=== PATIENT | male | born 1960 | race Caucasian/White ===

== ENCOUNTER 2016-06-17 08:59 | Emergency (ER) | payer BC ==
[~2016-06-17] VITALS: Ht 177.8 cm; Wt 85.0 kg
[2016-06-17 09:01] VITALS: BP 123/66; PULSE 90; RESP 20; TEMP 97.5; O2SAT 95
--- NOTE | 2016-06-17 09:09 | PD ---
HPI . left ankle/foot pain since Mon Chief Complaint: Musculoskeletal Complaint Time Seen by Provider: 09:09 Travel History International Travel<30 days: No Contact w/Intl Traveler<30days: No Traveled to known affect area: No History of Present Illness HPI 56-year-old male with no significant past medical history here with complaints of left ankle and foot pain since Monday. Patient was out blowing his deck when he somehow stumbled and fell twisting his left ankle. He also came down with his left hand on the deck and sustained some splinters, which his has removed most of them. He thinks there may still be a few small splinters in his left hand. He is up-to-date on his tetanus shot. In regards to his left ankle and foot pain he rates it as 7/10 without any further radiation. He has mobility in his ankle and digits, but it does cause some pain with movement. He denies any numbness or tingling. He denies any head injury. He has no other complaints. He is accompanied by his . [facility] Past Medical History Medical History: Denies Significant Hx Social History Alcohol Use: No Tobacco Use: No Substance Use: No Allergies-Medications (Allergen,Severity, Reaction): Coded Allergies: No Known Allergies (Unverified , 06/17/16) Reported Meds & Prescriptions Reported Meds & Active Scripts Active Reported Valtrex (Valacyclovir HCl) 1 Gm Tab Unknown Dose PO DAILY Detrol (Tolterodine Tartrate) 1 Mg Tab 1 Mg PO DAILY Review of Systems General / Constitutional: No: Fever Eyes: No: Visual changes HENT: No: Headaches Cardiovascular: No: Chest Pain or Discomfort Respiratory: No: Shortness of Breath Gastrointestinal: No: Abdominal Pain Genitourinary: No: Dysuria Musculoskeletal: Positive: Pain (left ankle/foot) Skin: No Rash Neurologic: No: Weakness Psychiatric: No: Depression Endocrine: No: Polydipsia Hematologic/Lymphatic: No: Easy Bruising Physical Exam Narrative GENERAL: AAO x 3, no acute distress, Well-nourished, well-developed patient. SKIN: Warm and dry. No visible rashes or bruising. Palm of right hand with 4 visible splinters very small. HEAD: Normocephalic and atraumatic. EYES: No scleral icterus. No injection or drainage. ENT: No nasal drainage noted. Mucous membranes pink. Airway patent. NECK: Supple, trachea midline. No JVD. CARDIOVASCULAR: Regular rate and rhythm without murmurs, gallops, or rubs. RESPIRATORY: Breath sounds equal bilaterally. No accessory muscle use. No rhonchi or rales. GASTROINTESTINAL: Abdomen soft, non-tender, nondistended. EXTREMITIES: No cyanosis. Edema to the left lateral ankle. There is point tenderness over the lateral malleolus. There is also point tenderness to the lateral foot. medial malleolus no point tenderness or edema. BACK: Nontender without obvious deformity. No CVA tenderness. PSYCH: AAO x 3, normal affect. Data Data Last Documented VS Vital Signs Date Time Temp Pulse Resp B/P Pulse Ox O2 Delivery O2 Flow Rate FiO2 06/17/16 09:01 97.5 90 20 123/66 95 Room Air Orders Ankle, Complete ([id number]) (06/17/16 09:15) Foot, Complete ([id number]) (06/17/16 09:15) ^ Luis M Bandage (06/17/16 10:11) Crutches (06/17/16 10:11) MDM Medical Decision Making Medical Screen Exam Complete: Yes Emergency Medical Condition: Yes Medical Record Reviewed: Yes (no prior) Differential Diagnosis ankle sprain, ankle fracture, foot fracture Narrative Course 56-year-old male with no significant past medical history here with complaints of left ankle and foot pain since Monday. Patient was out blowing his deck when he somehow stumbled and fell twisting his left ankle. He also came down with his left hand on the deck and sustained some splinters, which his has removed most of them. He thinks there may still be a few small splinters in his left hand. He is up-to-date on his tetanus shot. In regards to his left ankle and foot pain he rates it as 7/10 without any further radiation. He has mobility in his ankle and digits, but it does cause some pain with movement. He denies any numbness or tingling. He denies any head injury. He has no other complaints. He is accompanied by his . Patient seen and examined. He has some edema, slight ecchymosis and point tenderness to his left lateral malleolus and left lateral foot. X-ray ordered. I do not think he will have a fracture, however I believe he does have a sprain. His pain level is 7/10 and I offered him pain control medications, which he declined. I offered to remove the splinters in his left hand and he is in agreement. I recommend use of local anesthesia to remove them, and patient declined. He just wants me to take them out. Last Impressions Foot X-Ray 06/17/16914 Signed Impressions: Service Date/Time: Friday, June 17, 2016 09:38 - CONCLUSION: Unremarkable examination of the left foot. Rodolfo Mae MD Ankle X-Ray 06/17/16914 Signed Impressions: Service Date/Time: Friday, June 17, 2016 09:40 - CONCLUSION: Soft tissue swelling laterally however findings are concerning for possible nondisplaced fracture fragments of the tip of the medial malleolus. Please correlate for point tenderness. Rodolfo Mae MD there is no point tenderness to medial malleolus. There is only tenderness to the lateral malleolus. Luis M wrap and crutches. recommend f/u with podiatry in the next 3-5 days. Patient is traveling back to [place] tomorrow. 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 I advised him that podiatry can perform evaluation to check if any additional fracture. Explained that our xray did not show acute fracture where he has tenderness. 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 Advised patient to rest, ice, use compression and elevate injured area. Patient verbalized understanding of instructions, questions were answered, and thanked me for their care. I advised them if their condition worsens, please return to the nearest emergency room for further care. Procedures Procedure Narrative Splinter removal Patient consented and did not want any anesthesia. Area cleaned with Betadine. Small 27-gauge needle used to remove for splinters from the palm of the left hand. There was no bleeding. Area cleaned once more. No dressing was needed. Diagnosis Primary Impression: Left ankle sprain Qualified Code: S93.402A - Sprain of left ankle, unspecified ligament, initial encounter Referrals: [facility] Patient Instructions: General Instructions Departure Forms: Tests/Procedures, Work Release Enter return to work date: Jun 24, 2016 Special Instructions: needs to be cleared by podiatry before returning to work Additional Instructions: Rest the affected area as much as possible. Ice this area for 15-20 minutes at a time. You can do this every hour or as much as tolerated. Keep this area compressed (luis m bandage) as tolerated. Elevate this area. Use ibuprofen as needed for pain and inflammation. Please see a on air personality in the next 3-5 days. Try to use crutches as much as possible to keep weight off of this ankle. Med/Other Pt SpecificInfo: No Change to Meds Disposition: 01 DISCHARGE HOME Condition: Stable Virgie Hernandez Jun 17, 2016 09:09
[2016-06-17] MEDS ORDERED: VALT1TAB PO (09:13)
[2016-06-17] MEDS ORDERED: CIAL5TAB PO (09:13)
[2016-06-17] MEDS ORDERED: [UNRECOGNIZED DRUG - CODE] PO (09:13)
--- NOTE | 2016-06-17 09:59 | RADRPT ---
EXAM DATE/TIME: 06/17/2016 09:38 [facility] COMPARISON: ANKLE LEFT COMPLETE ([id number]), June 17, 2016, 9:40. INDICATIONS : Left foot and ankle pain and swelling after stepping off of deck. MEDICAL HISTORY : None. SURGICAL HISTORY : None. ENCOUNTER: Initial ACUITY: 3 days PAIN SCORE: 6/10 LOCATION: Left Foot. FINDINGS: Three view examination of the left foot demonstrates no soft tissue swelling, dislocation, or fractur e. The tarsal bones appear intact. The interphalangeal and metatarsophalangeal joints are intact. The calcaneus is intact. Bony mineralization is normal. CONCLUSION: Unremarkable examination of the left foot. Rodolfo Mae MD on June 17, 2016 at 9:57 Board Certified Radiologist. This report was verified electronically.
--- NOTE | 2016-06-17 10:00 | RADRPT ---
EXAM DATE/TIME: 06/17/2016 09:40 [facility] COMPARISON: FOOT LEFT COMPLETE ([id number]), June 17, 2016, 9:38. INDICATIONS : Left foot and ankle pain and swelling after stepping off of deck. MEDICAL HISTORY : None. SURGICAL HISTORY : None. ENCOUNTER: Initial ACUITY: 3 days PAIN SCORE: 6/10 LOCATION: Left ankle. FINDINGS: There is mild soft tissue swelling at the lateral aspect of the ankle. The ankle mortise is approxima mini. A nondisplaced fracture of the tip of the distal tibia is suspected versus remote ossific fragme nts. Correlate for point tenderness. CONCLUSION: Soft tissue swelling laterally however findings are concerning for possible nondisplaced fracture fra gments of the tip of the medial malleolus. Please correlate for point tenderness. Rodolfo Mae MD on June 17, 2016 at 9:57 Board Certified Radiologist. This report was verified electronically.
== END 2016-06-17 10:58 | disposition home or self-care (01) ==
LOC: NEPK 08:59
DX: S93.402A Sprain of unspecified ligament of left ankle, initial encounter (principal); S60.552A Superficial foreign body of left hand, initial encounter; X50.0XXA Overexertion from strenuous movement or load, initial encounter; Y93.H9 Activity, other involving exterior property and land maintenance, building and construction; Y92.007 Garden or yard of unspecified non-institutional (private) residence as the place of occurrence of the external cause; Y99.8 Other external cause status
CPT/HCPCS: 73610; 73630; 99283; E0113